=== PATIENT | female | born 1975 | race Caucasian/White ===

== ENCOUNTER 2020-03-04 12:34 | Emergency (ER) | payer OTHER ==
[~2020-03-04] VITALS: Ht 162.6 cm; Wt 49.9 kg
[2020-03-04] MEDS ORDERED: HYDPAM25 PO (12:46)
[2020-03-04] MEDS ORDERED: Vistaril50 MG PO (12:54)
[2020-03-04] MEDS ORDERED: HYDHCL25 PO (13:49)
== END 2020-03-04 13:55 | disposition home or self-care (01) ==
LOC: ER 12:34
DX: L50.9 Urticaria, unspecified (principal)
CPT/HCPCS: 99282

== ENCOUNTER 2020-04-11 09:48 | Observation (INO) | payer OTHER ==
[~2020-04-11] VITALS: Ht 162.6 cm; Wt 54.4 kg
[~2020-04-11 09:48] MED LIST: HYDHCL25 PO; HYDPAM25 PO; Vistaril50 MG PO
[2020-04-11 16:41] LABS: BASOPHILS ABSOLUTE AUTO 0.03 K/mm3 (0.00-0.23); BASOPHILS PERCENT AUTO 0 % (0-2); EOSINOPHILS ABSOLUTE AUTO 0.06 K/mm3 (0.00-0.68); EOSINOPHILS PERCENT AUTO 1 % (0-6); Hematocrit 35.7 % (33.0-51.0); Hemoglobin 11.8 g/dL (11.5-16.0); IMMATURE GRAN ABSOLUTE AUTO 0.01 K/mm3 (0.00-0.10); IMMATURE GRAN PERCENT AUTO 0 % (0-1); LYMPHOCYTES ABSOLUTE AUTO 2.55 K/mm3 (0.84-5.20); LYMPHOCYTES PERCENT AUTO 30 % (21-46); MONOCYTES ABSOLUTE AUTO 0.65 K/mm3 (0.16-1.47); MONOCYTES PERCENT AUTO 8 % (4-13); Mean Corpuscular HGB 29.6 pg (26.0-34.0); Mean Corpuscular HGB Conc 33.1 g/dL (31.5-36.5); Mean Corpuscular Volume 90 fL (80-100); Mean Platelet Volume 9.5 fL (9.1-12.4); NEUTROPHILS ABSOLUTE AUTO 5.29 K/mm3 (1.96-9.15); NEUTROPHILS PERCENT AUTO 62 % (41-73); Platelet Count 332 K/mm3 (150-400); RDW Standard Deviation 42.8 fL (35.1-46.3); Red Blood Cell Count 3.99 M/mm3 (3.80-5.20); White Blood Cell Count 8.59 K/mm3 (4.00-11.30)
[2020-04-11 16:55] LABS: Ethanol (Alcohol), Blood, Med <3 mg/dL; Salicylate 2.8 mg/dL (2.8-20.0)
[2020-04-11 16:59] LABS: Alanine Aminotransfer (ALT/SGP 20 U/L (12-78); Albumin, Blood 3.6 g/dL (3.4-5.0); Albumin/Globulin Ratio 0.9 (0.8-1.8); Alk Phos 73 U/L (50-136); Anion Gap 5 mmol/L (6-16); Aspartate Aminotrans (AST/SGOT 13 U/L (12-37); Bilirubin, Total 0.2 mg/dL (0.1-1.0); Blood Urea Nitrogen 19 mg/dL (8-24); Bun/Creatinine Ratio 25.4 (12.0-20.0); CO2, Blood 24 mmol/L (21-32); Calcium, Blood 8.7 mg/dL (8.5-10.1); Chloride, Blood 110 mmol/L (98-108); Creatinine, Blood 0.75 mg/dL (0.40-1.00); Globulin, Blood 4.1 g/dL (2.2-4.0); Glomerular Filtration Rate >60 (60-); Glucose, Blood 99 mg/dL (70-99); Sodium, Blood 139 mmol/L (136-145); Total Protein, Blood 7.7 g/dL (6.4-8.2)
[2020-04-11 17:05] LABS: Acetaminophen, Random <2.0 ug/mL (10.0-30.0)
[2020-04-12] MEDS ORDERED: RISP1 PO (09:40)
[2020-04-12] MEDS ORDERED: PROM25 PO (09:40)
[2020-04-12] MEDS ORDERED: HYDPAM50 PO (09:40)
== END 2020-04-12 10:13 | disposition home or self-care (01) ==
LOC: ER 09:48 → EOR 09:49
PROVIDERS: ADMIT Emergency Medicine
DX: F25.0 Schizoaffective disorder, bipolar type (principal); J45.909 Unspecified asthma, uncomplicated; F41.9 Anxiety disorder, unspecified; F17.210 Nicotine dependence, cigarettes, uncomplicated; L50.8 Other urticaria; Z88.5 Allergy status to narcotic agent; Z88.8 Allergy status to other drugs, medicaments and biological substances
CPT/HCPCS: 36415; 80053; 85025; 99285; A9270; G0378; G0480; Q3014

== ENCOUNTER 2020-04-22 08:58 | Emergency (ER) | payer OTHER ==
[~2020-04-22] VITALS: Ht 162.6 cm; Wt 54.4 kg
[~2020-04-22 08:58] MED LIST changes: +HYDPAM50 PO; +PROM25 PO; +RISP1 PO
[2020-04-22] MEDS ORDERED: Cephalexin500 MG PO (09:28)
[2020-04-22] MEDS ORDERED: ALBU90OI INH (09:58)
== END 2020-04-22 10:02 | disposition home or self-care (01) ==
LOC: ER 08:58
DX: L03.116 Cellulitis of left lower limb (principal); F17.290 Nicotine dependence, other tobacco product, uncomplicated; Z79.899 Other long term (current) drug therapy; Z88.5 Allergy status to narcotic agent; Z88.6 Allergy status to analgesic agent
CPT/HCPCS: 99283; A9270

== ENCOUNTER 2020-05-05 19:37 | Emergency (ER) | payer OTHER ==
[~2020-05-05] VITALS: Ht 162.6 cm; Wt 56.7 kg
[~2020-05-05 19:37] MED LIST changes: +ALBU90OI INH; +Cephalexin500 MG PO
[2020-05-05] MEDS ORDERED: HYDHCL25 PO (20:45)
== END 2020-05-05 21:02 | disposition home or self-care (01) ==
LOC: ER 19:37
DX: L50.9 Urticaria, unspecified (principal); F17.290 Nicotine dependence, other tobacco product, uncomplicated; Z21 Asymptomatic human immunodeficiency virus [HIV] infection status
CPT/HCPCS: 99282; A9270

== ENCOUNTER 2020-06-13 13:22 | Emergency (ER) | payer OTHER ==
[~2020-06-13] VITALS: Ht 162.6 cm; Wt 53.5 kg
[2020-06-13] MEDS ORDERED: ALBU8HFA2 INH (13:33)
[2020-06-13] MEDS ORDERED: HYDHCL25 PO (13:34)
== END 2020-06-13 13:38 | disposition home or self-care (01) ==
LOC: ER 13:22
DX: Z76.0 Encounter for issue of repeat prescription (principal); J45.909 Unspecified asthma, uncomplicated; F41.9 Anxiety disorder, unspecified; F31.9 Bipolar disorder, unspecified; F20.9 Schizophrenia, unspecified; Z88.5 Allergy status to narcotic agent; F17.290 Nicotine dependence, other tobacco product, uncomplicated; Z79.899 Other long term (current) drug therapy
CPT/HCPCS: 99281

== ENCOUNTER 2020-07-26 13:25 | Emergency (ER) | payer OTHER ==
[~2020-07-26] VITALS: Ht 162.6 cm; Wt 54.4 kg
[~2020-07-26 13:25] MED LIST changes: +ALBU8HFA2 INH
[2020-07-26] MEDS ORDERED: ALBU90OI INH (13:45)
[2020-07-26] MEDS ORDERED: HYDHCL25 PO (13:47)
== END 2020-07-26 13:45 | disposition home or self-care (01) ==
LOC: ER 13:25
DX: J45.909 Unspecified asthma, uncomplicated (principal); Z76.0 Encounter for issue of repeat prescription; Z88.5 Allergy status to narcotic agent; Z88.6 Allergy status to analgesic agent; Z79.899 Other long term (current) drug therapy; F17.290 Nicotine dependence, other tobacco product, uncomplicated
CPT/HCPCS: 99281

== ENCOUNTER 2020-09-06 22:52 | Emergency (ER) | payer OTHER ==
[~2020-09-06] VITALS: Ht 162.6 cm; Wt 56.7 kg
[2020-09-06] MEDS ORDERED: HYDHCL25 PO (23:17)
== END 2020-09-06 23:42 | disposition home or self-care (01) ==
LOC: ER 22:52
DX: F41.9 Anxiety disorder, unspecified (principal); F17.290 Nicotine dependence, other tobacco product, uncomplicated; Z88.5 Allergy status to narcotic agent; Z88.6 Allergy status to analgesic agent; Z79.899 Other long term (current) drug therapy
CPT/HCPCS: 99282; A9270

== ENCOUNTER 2020-10-18 21:40 | Emergency (ER) | payer OTHER | END 2020-10-18 22:19 | disposition left against medical advice (07) | LOC: ER 21:40 | DX: Z53.21 Procedure and treatment not carried out due to patient leaving prior to being seen by health care provider (principal) ==

== ENCOUNTER 2020-10-20 01:25 | Emergency (ER) | payer OTHER ==
[~2020-10-20] VITALS: Ht 162.6 cm; Wt 65.0 kg
[~2020-10-20 01:25] MED LIST changes: -AMOX500 PO; -NAPR500 PO
[2020-10-20] MEDS ORDERED: AMOX500 PO (07:35)
[2020-10-20] MEDS ORDERED: NAPR500 PO (07:36)
[2020-10-20] MEDS ORDERED: RISP1 PO (07:36)
== END 2020-10-20 04:04 | disposition left against medical advice (07) ==
LOC: ER 01:25
DX: Z53.21 Procedure and treatment not carried out due to patient leaving prior to being seen by health care provider (principal)

== ENCOUNTER → 2020-10-20 | Outpatient (CLI) | payer OTHER ==
[~2020-10-20] MED LIST changes: +AMOX500 PO; +NAPR500 PO
[2020-10-21 09:15] LABS: Candida species (DNA Probe) Negative (NEGATIVE); G. vaginalis (DNA Probe) Positive (NEGATIVE); T. vaginalis (DNA Probe) Positive (NEGATIVE)
[2020-10-24 14:10] LABS: HPV 16 Negative (Negative); HPV 18 Negative (Negative); HPV OTHER HR TYPES Negative (Negative)
== END ==
LOC: LAB 13:00 → LAB SHORT 13:00
PROVIDERS: Family Medicine
DX: Z01.419 Encounter for gynecological examination (general) (routine) without abnormal findings (principal); N89.8 Other specified noninflammatory disorders of vagina
CPT/HCPCS: 87480; 87510; 87624; 87660; G0145

== ENCOUNTER 2022-07-24 08:33 | Emergency (ER) | payer OTHER ==
[~2022-07-24] VITALS: Ht 162.6 cm; Wt 72.6 kg
[~2022-07-24 08:33] MED LIST changes: +AMOX500 PO; +NAPR500 PO
[2022-07-24 08:45] VITALS: BP 140/101
[2022-07-24 09:23] LABS: BASOPHILS ABSOLUTE AUTO 0.02 K/mm3 (0.00-0.23); BASOPHILS PERCENT AUTO 0 % (0-2); EOSINOPHILS ABSOLUTE AUTO 0.06 K/mm3 (0.00-0.68); EOSINOPHILS PERCENT AUTO 1 % (0-6); Hematocrit 36.6 % (33.0-51.0); Hemoglobin 12.3 g/dL (11.5-16.0); IMMATURE GRAN ABSOLUTE AUTO 0.03 K/mm3 (0.00-0.10); IMMATURE GRAN PERCENT AUTO 0 % (0-1); LYMPHOCYTES ABSOLUTE AUTO 1.59 K/mm3 (0.84-5.20); LYMPHOCYTES PERCENT AUTO 19 % (21-46); MONOCYTES PERCENT AUTO 7 % (4-13); Mean Corpuscular HGB 28.7 pg (26.0-34.0); Mean Corpuscular HGB Conc 33.6 g/dL (31.5-36.5); Mean Corpuscular Volume 86 fL (80-100); Mean Platelet Volume 9.2 fL (9.1-12.4); NEUTROPHILS ABSOLUTE AUTO 5.98 K/mm3 (1.96-9.15); NEUTROPHILS PERCENT AUTO 72 % (41-73); Platelet Count 300 K/mm3 (150-400); RDW Coefficient Variation 13.5 % (11.7-14.2); RDW Standard Deviation 41.7 fL (35.1-46.3); Red Blood Cell Count 4.28 M/mm3 (3.80-5.20); White Blood Cell Count 8.28 K/mm3 (4.00-11.30)
[2022-07-24] MEDS ORDERED: VENL75ER PO (10:11)
[2022-07-24] MEDS ORDERED: ATOMOXETINE HCL40 M3 PO (10:12)
[2022-07-24 10:58] LABS: Magnesium, Blood 1.8 mg/dL (1.6-2.4)
[2022-07-24 10:59] LABS: Albumin, Blood 3.5 g/dL (3.4-5.0); Albumin/Globulin Ratio 0.9 (0.8-1.8); Bilirubin, Total 0.5 mg/dL (0.1-1.0); Bun/Creatinine Ratio 15.6 (12.0-20.0); Creatinine, Blood 0.7 mg/dL (0.40-1.00); Globulin, Blood 3.7 g/dL (2.2-4.0); Potassium, Blood 3.6 mmol/L (3.5-5.5); Total Protein, Blood 7.2 g/dL (6.4-8.2)
[2022-07-24] MEDS ORDERED: NARCAN4 M1 (11:11)
[2022-07-24] MEDS ORDERED: ONDA4ODT MM (11:11)
== END 2022-07-24 12:11 | disposition home or self-care (01) ==
LOC: ER 08:33
PROVIDERS: Physician Assistant
DX: F11.93 Opioid use, unspecified with withdrawal (principal); R11.0 Nausea; J45.909 Unspecified asthma, uncomplicated; F17.290 Nicotine dependence, other tobacco product, uncomplicated; Z88.5 Allergy status to narcotic agent; Z88.6 Allergy status to analgesic agent; Z79.899 Other long term (current) drug therapy
CPT/HCPCS: 80053; 83735; 85025; J2405; J2550; J2765; J7030

== ENCOUNTER 2023-01-10 17:09 | Emergency (ER) | payer OTHER ==
[~2023-01-10] VITALS: Ht 162.6 cm; Wt 72.6 kg
[~2023-01-10 17:09] MED LIST changes: +ATOMOXETINE HCL40 M3 PO; +NARCAN4 M1; +ONDA4ODT MM; +VENL75ER PO
[2023-01-10 19:30] VITALS: BP 134/81
[2023-01-10] MEDS ORDERED: SUBOXONE 8 MG-1 EACH SL (20:16)
== END 2023-01-10 20:28 | disposition home or self-care (01) ==
LOC: ER 17:09
DX: F11.93 Opioid use, unspecified with withdrawal (principal); J45.909 Unspecified asthma, uncomplicated; F31.9 Bipolar disorder, unspecified; F17.290 Nicotine dependence, other tobacco product, uncomplicated; Z88.5 Allergy status to narcotic agent; Z88.6 Allergy status to analgesic agent; Z79.899 Other long term (current) drug therapy
CPT/HCPCS: 99283

== ENCOUNTER 2023-01-16 18:41 | Emergency (ER) | payer OTHER ==
[~2023-01-16] VITALS: Ht 162.6 cm; Wt 72.6 kg
[~2023-01-16 18:41] MED LIST changes: +SUBOXONE 8 MG-1 EACH SL
[2023-01-16 18:54] VITALS: BP 121/80
[2023-01-16 21:01] LABS: BASOPHILS ABSOLUTE AUTO 0.02 K/mm3 (0.00-0.23); BASOPHILS PERCENT AUTO 0 % (0-2); EOSINOPHILS ABSOLUTE AUTO 0.01 K/mm3 (0.00-0.68); EOSINOPHILS PERCENT AUTO 0 % (0-6); Hemoglobin 12.5 g/dL (11.5-16.0); IMMATURE GRAN ABSOLUTE AUTO 0.02 K/mm3 (0.00-0.10); IMMATURE GRAN PERCENT AUTO 0 % (0-1); LYMPHOCYTES PERCENT AUTO 20 % (21-46); MONOCYTES ABSOLUTE AUTO 0.48 K/mm3 (0.16-1.47); MONOCYTES PERCENT AUTO 5 % (4-13); Mean Corpuscular HGB 29.1 pg (26.0-34.0); Mean Corpuscular HGB Conc 33.8 g/dL (31.5-36.5); Mean Corpuscular Volume 86 fL (80-100); Mean Platelet Volume 9.2 fL (9.1-12.4); NEUTROPHILS ABSOLUTE AUTO 6.57 K/mm3 (1.96-9.15); NEUTROPHILS PERCENT AUTO 74 % (41-73); Platelet Count 322 K/mm3 (150-400); RDW Coefficient Variation 13.4 % (11.7-14.2); RDW Standard Deviation 41.7 fL (35.1-46.3)
[2023-01-16 21:18] LABS: Albumin, Blood 3.7 g/dL (3.4-5.0); Bilirubin, Total 0.2 mg/dL (0.1-1.0); Bun/Creatinine Ratio 10.1 (12.0-20.0); Calcium, Blood 8.7 mg/dL (8.5-10.1); Creatinine, Blood 0.69 mg/dL (0.40-1.00); Globulin, Blood 3.7 g/dL (2.2-4.0); Potassium, Blood 3.3 mmol/L (3.5-5.5); Total Protein, Blood 7.4 g/dL (6.4-8.2)
[2023-01-17] MEDS ORDERED: HYDPAM100 (10:27)
[2023-01-17] MEDS ORDERED: BUPRENORPHINE-1 EACH SL (10:27)
[2023-01-17] MEDS ORDERED: VENL25 PO (10:27)
[2023-01-17] MEDS ORDERED: RISPERIDONE110 PO (10:28)
[2023-01-17] MEDS ORDERED: [UNRECOGNIZED DRUG - CODE] PO (10:28)
[2023-01-17] MEDS ORDERED: BUPRENORPHINE HC8 MG SL (14:53)
== END 2023-01-16 20:55 | disposition home or self-care (01) ==
LOC: ER 18:41
PROVIDERS: Physician Assistant
DX: F11.90 Opioid use, unspecified, uncomplicated (principal); Z88.8 Allergy status to other drugs, medicaments and biological substances; Z88.5 Allergy status to narcotic agent; Z79.899 Other long term (current) drug therapy; J45.909 Unspecified asthma, uncomplicated; M19.90 Unspecified osteoarthritis, unspecified site; F17.210 Nicotine dependence, cigarettes, uncomplicated
CPT/HCPCS: 36415; 80053; 85025; 93005; 93010; 99284-25

== ENCOUNTER 2023-01-17 09:52 | Emergency (ER) | payer OTHER ==
[~2023-01-17] VITALS: Ht 162.6 cm; Wt 72.6 kg
[2023-01-17] MEDS ORDERED: BUPRENORPHINE-1 EACH SL (10:27)
[2023-01-17] MEDS ORDERED: VENL25 PO (10:27)
[2023-01-17] MEDS ORDERED: HYDPAM100 (10:27)
[2023-01-17] MEDS ORDERED: RISPERIDONE110 PO (10:28)
[2023-01-17] MEDS ORDERED: [UNRECOGNIZED DRUG - CODE] PO (10:28)
[2023-01-17 13:01] VITALS: BP 113/65
[2023-01-17] MEDS ORDERED: BUPRENORPHINE HC8 MG SL (14:53)
== END 2023-01-17 14:56 | disposition home or self-care (01) ==
LOC: ER 09:52
DX: F11.93 Opioid use, unspecified with withdrawal (principal); F41.9 Anxiety disorder, unspecified; Z88.5 Allergy status to narcotic agent; Z88.8 Allergy status to other drugs, medicaments and biological substances; Z79.899 Other long term (current) drug therapy; J45.909 Unspecified asthma, uncomplicated; M19.90 Unspecified osteoarthritis, unspecified site; F17.200 Nicotine dependence, unspecified, uncomplicated
CPT/HCPCS: 99281-25; A9270

== ENCOUNTER 2023-03-17 19:01 | Emergency (ER) | payer OTHER ==
[~2023-03-17] VITALS: Ht 162.6 cm; Wt 67.6 kg
[~2023-03-17 19:01] MED LIST changes: +BUPRENORPHINE HC8 MG SL; +BUPRENORPHINE-1 EACH SL; +HYDPAM100; +RISPERIDONE110 PO; +VENL25 PO; +[UNRECOGNIZED DRUG - CODE] PO
[2023-03-17 19:12] VITALS: BP 137/87
== END 2023-03-17 20:44 | disposition home or self-care (01) ==
LOC: ER 19:01
DX: M79.5 Residual foreign body in soft tissue (principal); J45.909 Unspecified asthma, uncomplicated; F31.9 Bipolar disorder, unspecified; F17.200 Nicotine dependence, unspecified, uncomplicated; Z88.5 Allergy status to narcotic agent
CPT/HCPCS: 73620

== ENCOUNTER 2023-09-10 15:58 | Emergency (ER) | payer OTHER ==
[~2023-09-10] VITALS: Ht 162.6 cm; Wt 70.3 kg
[~2023-09-10 15:58] MED LIST changes: +Atarax10 MG PO; +DESVENLAFAXINE50 M3 PO; +Naprosyn500 MG PO
[2023-09-10 16:05] VITALS: BP 147/103
[2023-09-10] MEDS ORDERED: ALBU90OI INH (16:43)
[2023-09-10] MEDS ORDERED: DOCU100 PO (16:44)
[2023-09-10] MEDS ORDERED: COMBIVENT RESPIM4 G1 IH (16:44)
[2023-09-10] MEDS ORDERED: MIRALAX17 GM PO (16:44)
[2023-09-10] MEDS ORDERED: COMBIVENT RESPIM4 G1 INH (16:56)
[2023-09-10] MEDS ORDERED: ATOM40 PO (16:56)
[2023-09-10] MEDS ORDERED: Atarax10 MG PO (16:56)
[2023-09-10] MEDS ORDERED: DESV50 PO (16:56)
[2023-09-10] MEDS ORDERED: HYDPAM100 PO (16:56)
[2023-09-10] MEDS ORDERED: RISP1 PO (16:56)
== END 2023-09-10 17:08 | disposition home or self-care (01) ==
LOC: ER 15:58
DX: M79.673 Pain in unspecified foot (principal); G89.29 Other chronic pain; Z76.0 Encounter for issue of repeat prescription; J45.909 Unspecified asthma, uncomplicated; F17.200 Nicotine dependence, unspecified, uncomplicated; Z79.899 Other long term (current) drug therapy; Z88.5 Allergy status to narcotic agent; Z88.6 Allergy status to analgesic agent
CPT/HCPCS: 99281

== ENCOUNTER 2023-11-28 14:10 | Emergency (ER) | payer OTHER ==
[~2023-11-28] VITALS: Ht 162.6 cm; Wt 68.0 kg
[~2023-11-28 14:10] MED LIST changes: +ATOM40 PO; +COMBIVENT RESPIM4 G1 IH; +COMBIVENT RESPIM4 G1 INH; +DESV50 PO; +DOCU100 PO; +HYDPAM100 PO; +MIRALAX17 GM PO
[2023-11-28 14:13] VITALS: BP 147/94
[2023-11-28] MEDS ORDERED: buprenorphine HCL 2 MG TAB.SUBL SL ONE (14:25)
[2023-11-28] MEDS ORDERED: SUBOXONE 8 MG-1 EACH SL (15:24)
[2023-12-12] MEDS ORDERED: BUPRENORPHINE HC8 MG SL (23:57)
[2023-12-12] MEDS ORDERED: CEPH500 PO (23:58)
[2023-12-12] MEDS ORDERED: BUSP5 PO (23:58)
[2023-12-12] MEDS ORDERED: DESV50 PO (23:59)
[2023-12-12] MEDS ORDERED: HYDHCL25 PO (23:59)
[2023-12-12] MEDS ORDERED: PROM25 PO (23:59)
[2023-12-13] MEDS ORDERED: SULTRIDS PO (04:33)
== END 2023-11-28 15:43 | disposition home or self-care (01) ==
LOC: ER 14:10
DX: F11.23 Opioid dependence with withdrawal (principal); Z76.0 Encounter for issue of repeat prescription; F17.210 Nicotine dependence, cigarettes, uncomplicated; J45.909 Unspecified asthma, uncomplicated; Z79.899 Other long term (current) drug therapy; Z88.5 Allergy status to narcotic agent; Z88.6 Allergy status to analgesic agent
CPT/HCPCS: 99282; 99283; A9270

== ENCOUNTER 2023-12-20 06:59 | Emergency (ER) | payer OTHER ==
[~2023-12-20] VITALS: Ht 157.5 cm; Wt 65.8 kg
[~2023-12-20 06:59] MED LIST changes: +BUSP5 PO; +CEPH500 PO; +SULTRIDS PO
[2023-12-20] MEDS ORDERED: Metoclopramide HCl 5MG / ML 2ML Vial IV ONE (07:15)
[2023-12-20] MEDS ORDERED: NS 1,000 ML IV SCH (07:15)
[2023-12-20] MEDS ORDERED: CloNIDine 0.1 MG Tab PO ONE (07:15)
[2023-12-20 07:40] LABS: BASOPHILS ABSOLUTE AUTO 0.02 K/mm3 (0.00-0.23); BASOPHILS PERCENT AUTO 1 % (0-2); EOSINOPHILS ABSOLUTE AUTO 0.18 K/mm3 (0.00-0.68); EOSINOPHILS PERCENT AUTO 4 % (0-6); Hematocrit 31.6 % (33.0-51.0); Hemoglobin 10.5 g/dL (11.5-16.0); IMMATURE GRAN ABSOLUTE AUTO 0.01 K/mm3 (0.00-0.10); IMMATURE GRAN PERCENT AUTO 0 % (0-1); LYMPHOCYTES ABSOLUTE AUTO 1.83 K/mm3 (0.84-5.20); LYMPHOCYTES PERCENT AUTO 41 % (21-46); MONOCYTES ABSOLUTE AUTO 0.52 K/mm3 (0.16-1.47); MONOCYTES PERCENT AUTO 12 % (4-13); Mean Corpuscular HGB 28.7 pg (26.0-34.0); Mean Corpuscular HGB Conc 33.2 g/dL (31.5-36.5); Mean Corpuscular Volume 86 fL (80-100); NEUTROPHILS ABSOLUTE AUTO 1.87 K/mm3 (1.96-9.15); NEUTROPHILS PERCENT AUTO 42 % (41-73); Platelet Count 268 K/mm3 (150-400); RDW Coefficient Variation 14.1 % (11.7-14.2); RDW Standard Deviation 44.9 fL (35.1-46.3); Red Blood Cell Count 3.66 M/mm3 (3.80-5.20); White Blood Cell Count 4.43 K/mm3 (4.00-11.30)
[2023-12-20 08:06] LABS: Albumin, Blood 2.9 g/dL (3.4-5.0); Albumin/Globulin Ratio 0.8 (0.8-1.8); Bilirubin, Total 0.3 mg/dL (0.1-1.0); Bun/Creatinine Ratio 19.1 (12.0-20.0); Calcium, Blood 8.8 mg/dL (8.5-10.1); Creatinine, Blood 1.1 mg/dL (0.40-1.00); Globulin, Blood 3.5 g/dL (2.2-4.0); Potassium, Blood 4.1 mmol/L (3.5-5.5); Total Protein, Blood 6.4 g/dL (6.4-8.2)
[2023-12-20] MEDS ORDERED: DOCU100 PO (08:22)
[2023-12-20] MEDS ORDERED: ONDA4ODT MM (08:22)
[2023-12-20 09:05] VITALS: BP 116/70
== END 2023-12-20 09:06 | disposition home or self-care (01) ==
LOC: ER 06:59
PROVIDERS: Emergency Medicine
DX: K59.00 Constipation, unspecified (principal); F11.23 Opioid dependence with withdrawal; F10.180 Alcohol abuse with alcohol-induced anxiety disorder; Z88.5 Allergy status to narcotic agent; Z88.8 Allergy status to other drugs, medicaments and biological substances; Z79.899 Other long term (current) drug therapy; J45.909 Unspecified asthma, uncomplicated; F17.210 Nicotine dependence, cigarettes, uncomplicated
CPT/HCPCS: 80053; 85025; 96361; 96374; 99284-25; A9270; J2765; J7030

== ENCOUNTER 2023-12-21 14:09 | Emergency (ER) | payer OTHER ==
[~2023-12-21] VITALS: Ht 162.6 cm; Wt 72.6 kg
[2023-12-21 14:11] VITALS: BP 139/99
[2023-12-21] MEDS ORDERED: Glycerin Adult Supp 1 EA PR ONE (15:25)
== END 2023-12-21 15:40 | disposition home or self-care (01) ==
LOC: ER 14:09
DX: K59.00 Constipation, unspecified (principal); R10.9 Unspecified abdominal pain; J45.909 Unspecified asthma, uncomplicated; F17.210 Nicotine dependence, cigarettes, uncomplicated; Z79.899 Other long term (current) drug therapy; Z88.5 Allergy status to narcotic agent; Z88.6 Allergy status to analgesic agent
CPT/HCPCS: 99283; A9270

== ENCOUNTER → 2024-02-03 | Outpatient (CLI) | payer OTHER ==
[2024-02-04 20:54] LABS: Chlamydia Trachomatis Vaginal NOT DETECTED (NOT DETECT); Neisseria Gonorrhoea Vaginal NOT DETECTED (NOT DETECT)
== END ==
LOC: LAB 17:33 → LAB SHORT 17:33
PROVIDERS: Physician Assistant
DX: Z11.3 Encounter for screening for infections with a predominantly sexual mode of transmission (principal)
CPT/HCPCS: 87491; 87591

== ENCOUNTER 2024-03-01 07:23 | Emergency (ER) | payer OTHER ==
[~2024-03-01] VITALS: Ht 162.6 cm; Wt 79.8 kg
[2024-03-01 10:13] VITALS: BP 163/87
[2024-03-01] MEDS ORDERED: Acetaminophen 500 MG Tab PO ONE (10:45)
[2024-03-01] MEDS ORDERED: Amoxicillin/Clavulanate K 875 MG Tab PO ONE (11:10)
[2024-03-01 11:26] LABS: BASOPHILS ABSOLUTE AUTO 0.01 K/mm3 (0.00-0.23); BASOPHILS PERCENT AUTO 0 % (0-2); EOSINOPHILS ABSOLUTE AUTO 0.05 K/mm3 (0.00-0.68); EOSINOPHILS PERCENT AUTO 1 % (0-6); Hematocrit 36.4 % (33.0-51.0); Hemoglobin 12.4 g/dL (11.5-16.0); IMMATURE GRAN ABSOLUTE AUTO 0.01 K/mm3 (0.00-0.10); IMMATURE GRAN PERCENT AUTO 0 % (0-1); LYMPHOCYTES ABSOLUTE AUTO 0.94 K/mm3 (0.84-5.20); LYMPHOCYTES PERCENT AUTO 21 % (21-46); MONOCYTES ABSOLUTE AUTO 0.65 K/mm3 (0.16-1.47); MONOCYTES PERCENT AUTO 14 % (4-13); Mean Corpuscular HGB 29.5 pg (26.0-34.0); Mean Corpuscular HGB Conc 34.1 g/dL (31.5-36.5); Mean Corpuscular Volume 87 fL (80-100); Mean Platelet Volume 9.5 fL (9.1-12.4); NEUTROPHILS ABSOLUTE AUTO 2.87 K/mm3 (1.96-9.15); NEUTROPHILS PERCENT AUTO 63 % (41-73); Platelet Count 216 K/mm3 (150-400); RDW Coefficient Variation 13.2 % (11.7-14.2); RDW Standard Deviation 41.3 fL (35.1-46.3); White Blood Cell Count 4.53 K/mm3 (4.00-11.30)
[2024-03-01 11:40] LABS: Albumin, Blood 3.4 g/dL (3.4-5.0); Albumin/Globulin Ratio 0.7 (0.8-1.8); Bilirubin, Total 0.3 mg/dL (0.1-1.0); Bun/Creatinine Ratio 19.9 (12.0-20.0); Calcium, Blood 8.9 mg/dL (8.5-10.1); Creatinine, Blood 0.6 mg/dL (0.40-1.00); Globulin, Blood 4.7 g/dL (2.2-4.0); Potassium, Blood 3.8 mmol/L (3.5-5.5); Total Protein, Blood 8.1 g/dL (6.4-8.2)
[2024-03-01] MEDS ORDERED: AMOCLA875 PO (11:46)
== END 2024-03-01 12:35 | disposition home or self-care (01) ==
LOC: ER 07:23
PROVIDERS: Physician Assistant
DX: K04.7 Periapical abscess without sinus (principal); N93.9 Abnormal uterine and vaginal bleeding, unspecified; J45.909 Unspecified asthma, uncomplicated; F17.290 Nicotine dependence, other tobacco product, uncomplicated; Z79.899 Other long term (current) drug therapy; Z88.5 Allergy status to narcotic agent; Z88.6 Allergy status to analgesic agent
CPT/HCPCS: 36415; 80053; 81025; 85025; 99283; A9270

== ENCOUNTER 2024-03-02 11:25 | Emergency (ER) | payer OTHER ==
[~2024-03-02] VITALS: Ht 162.6 cm; Wt 79.8 kg
[~2024-03-02 11:25] MED LIST changes: +AMOCLA875 PO
[2024-03-02 12:31] VITALS: BP 139/86
[2024-03-02] MEDS ORDERED: Buprenorphine HCL/Naloxone HCL 8MG-2MG Tab SL ONE (13:05)
== END 2024-03-02 13:49 | disposition left against medical advice (07) ==
LOC: ER 11:25
DX: K08.89 Other specified disorders of teeth and supporting structures (principal); F17.290 Nicotine dependence, other tobacco product, uncomplicated; J45.909 Unspecified asthma, uncomplicated; Z53.29 Procedure and treatment not carried out because of patient's decision for other reasons
CPT/HCPCS: 99282